=== PATIENT | male | born 1960 | race Caucasian/White ===

== ENCOUNTER 2020-11-15 10:33 | Emergency (ER) | payer OTHER, SELFPAY ==
[2020-11-15 10:49] VITALS: BP 145/92; PULSE 72; RESP 18; TEMP 37.2; O2SAT 99
--- NOTE | 2020-11-15 11:20 | ED.GENADULT ---
HPI - General Adult General Chief complaint: Extremity Injury, Lower Stated complaint: right big toe infection Time Seen by Provider: 11/15/20 11:20 Source: patient and RN notes reviewed Mode of arrival: ambulatory Limitations: no limitations History of Present Illness HPI narrative: 60-year-old male presents with complaints of RT great toe with swelling, warmth, pain, and redness for the past 8 days. Gato reports increasing redness and swelling over the past 48 hours. ?[place] and soaked in warm water and peroxide for 1 day without relief. ?No known injury. ?Denies numbness or tingling. ?No weakness of toe. ?Denies fever or chills. ?Denies immobility. Exacerbation is movement and palpation of the toe. ?No relieving factor. ?No break in skin or drainage. Denies abdominal pain, nausea, or vomiting. Tolerating po intake well. ?No history of MRSA. ?The patient reports he has not been diagnosed with COVID-19. The patient reports he is not waiting for the results of a COVID-19 lab test. ?The patient reports he does not have weakness or fatigue. ?The patient reports he does not have a new or worsening cough or shortness of breath. Denies chest pain. ?The patient reports he does not have any loss of taste or smell, rhinorrhea, congestion, sore throat, and diarrhea. ?Patient reports he is here visiting from [place]. ?Denies concerns for COVID-19 or exposures. ?At this time, the patient is not suspected of having COVID-19.?? Some parts of this dictation were generated by voice recognition software and may contain typographical and/or grammatical inaccuracies. Related Data Allergies Allergy/AdvReac Type Severity Reaction Status Date / Time Penicillins Allergy Unknown Swelling Verified 11/15/20 11:41 Review of Systems Review of Systems: CONSTITUTIONAL: Denies fever, chills, sweats. EYES: Denies visual changes, redness, discharge. ENT: Denies rhinorrhea, congestion, sore throat, otalgia. CARDIOVASCULAR: Denies chest pain, palpitations, edema. RESPIRATORY: Denies dyspnea, wheezing, cough GASTROINTESTINAL: Denies abdominal pain, nausea, vomiting, diarrhea. GENITOURINARY: Denies dysuria, hematuria, abnormal discharge SKIN: Denies rash or itching. Complaints of RT great toe with swelling, warmth, tenderness, and redness. Denies drainage. MUSCULOSKELETAL: Denies acute back pain or myalgia. Complaints of RT great toe with swelling, warmth, tenderness, and redness. Denies drainage. NEUROLOGIC: Denies numbness or focal weakness. PSYCHIATRIC: Denies anxiety or depression. All other systems reviewed are negative, except as documented in HPI and below. [facility] Past Medical History Medical History (Updated 11/16/20 @ 00:02 by Jesenia Rouse) Asthma childhood Obstructive sleep apnea Surgical History Surgical History (Updated 11/15/20 @ 11:44 by CHARLES De La Rosa) History of adenoidectomy History of tonsillectomy Family History Family History (Updated 11/15/20 @ 11:45 by CHARLES De La Rosa) Father , 2011 Cerebrovascular accident Mother Smoker in home Social History Social History (Updated 11/15/20 @ 11:45 by CHARLES De La Rosa) Smoking status: Never smoker Tobacco type: cigarettes Second hand tobacco smoke exposure: No Alcohol intake: current Substance use: never Substance use type: does not use Living arrangements: with family Occupation/Education: occupation Gender identity (if verbalized by the patient): Male Sexual Orientation (if Verbalized by the Patient): Straight or Heterosexual Comments At time of signature, agree with the nurse past medical, surgical, social, and family history. There is no relevant family history pertinent to the presenting complaint. Exam Narrative: GENERAL: This is a well-nourished, well-developed patient, in no apparent distress. Talks in full sentences and ambulates with RT antalgic gait without dyspnea. HEAD: Normocephalic, atraumatic. EYES: PERR
== END 2020-11-15 11:56 | disposition home or self-care (01) ==
PROVIDERS: Emergency Provider Nurse Practitioner Family
DX: L03.031 Cellulitis of right toe (principal); G47.33 Obstructive sleep apnea (adult) (pediatric)
CPT/HCPCS: 99213; G0463